=== PATIENT | female | born 1940 | race Caucasian/White ===

== ENCOUNTER 2016-07-16 09:47 | Day surgery (SDC) | payer MEDICARE, OTHER, BC ==
--- NOTE | ~2016-07-16 | EGD ---
EGD REPORT [facility] [address] [place] [address] NAME: LUIS AGUILERA : 36 STATUS : REG [facility]#: [id number] AGE: 76 ADM/REG DATE : 07/16/16 MR#: [id number] REPORT SERV DATE: 07/16/16 DICTATED BY: YONI BECERRA DATE: 07/16/16 REPORT STATUS : Draft TRANSCRIBED BY: [employer] DATE: 07/16/16 [facility] Patient Name: Luis Aguilera Date of : 1940 Attending MD: YONI BECERRA MD Procedure Date No Time: 07/16/2016 Procedure: Colonoscopy Indications: Gastrointestinal occult blood loss Referring MD: KATE RIVERA Medicines: as per anesthesia Complications: No immediate complications. Procedure: Pre-Anesthesia Assessment: - ASA Grade Assessment: I - A normal, healthy patient. After I obtained informed consent, the scope was passed under direct vision. Throughout the procedure, the patient's blood pressure, pulse, and oxygen saturations were monitored continuously. The PCF [id number] was introduced through the anus and advanced to the cecum, identified by appendiceal orifice and ileocecal valve. The colonoscopy was somewhat difficult due to significant looping and a tortuous colon. The patient tolerated the procedure. The quality of the bowel preparation was adequate to identify polyps. Findings: The perianal and digital rectal examinations were normal. Internal hemorrhoids were found during endoscopy and were mild. Impression: - Internal hemorrhoids. Recommendation: - Continue present medications. Procedure Code(s): --- Professional --- 53026, Colonoscopy, flexible, proximal to splenic flexure; diagnostic, with or without collection of specimen(s) by brushing or washing, with or without colon decompression (separate procedure) Diagnosis Code(s): --- Professional --- K64.8, Other hemorrhoids R19.5, Other fecal abnormalities CPT copyright 2013 [employer]. All rights reserved. EGD REPORT [facility] [address] [place]. [address] NAME: LUIS AGUILERA : 36 STATUS : REG [facility] PAT#: [id number] AGE: 76 ADM/REG DATE : 07/16/16 MR#: [id number] REPORT SERV DATE: 07/16/16 DICTATED BY: YONI BECERRA. DATE: 07/16/16 REPORT STATUS : Draft TRANSCRIBED BY: [employer] DATE: 07/16/16 The codes documented in this report are preliminary and upon training administrator review may be revised to meet current compliance requirements. YONI BCEERRA MD 07/16/2016 2:42 PM This report has been signed electronically. Number of Addenda: 0 Note Initiated On: 07/16/2016 2:05 PM Scope Withdrawal Time 0 hours 6 minutes 26 seconds [address] [facility] [place], [place] [address]
== END 2016-07-16 23:59 | disposition home or self-care (01) ==
LOC: SDC 09:47
PROVIDERS: Internal Medicine Gastroenterology
PROC: 0DJD8ZZ Inspection of Lower Intestinal Tract, Via Natural or Artificial Opening Endoscopic (ICD-10-PCS; principal; 2016-07-16 14:21)
DX: K64.8 Other hemorrhoids (principal); K92.2 Gastrointestinal hemorrhage, unspecified; M19.90 Unspecified osteoarthritis, unspecified site; Z90.710 Acquired absence of both cervix and uterus